=== PATIENT | female | born 1960 | race Caucasian/White ===

== ENCOUNTER 2018-06-20 13:38 | Emergency (ER) | payer OTHER ==
--- NOTE | 2018-06-20 15:46 | ER ---
Nurse's Notes [facility] Name: Gisselle Torres Age: 57 yrs Sex: Female : 1960 Arrival Date: 06/20/2018 Time: 13:39 Bed 28 Private MD: Diagnosis: Cellulitis of left lower limb Presentation: 06/20 13:58 Presenting complaint: Patient states: LLE insect bite started 2 days ago, increased sv swelling. Transition of care: patient was not received from another setting of care. Onset of symptoms was June 18, 2018. Care prior to arrival: None. 13:58 Method Of Arrival: Ambulatory sv 13:58 Acuity: CLARICE 4 sv 15:21 Risk Assessment: Do you want to hurt yourself or someone else? Patient reports no mg2 desire to harm self or others. Initial Sepsis Screen: Does the patient meet any 2 criteria? No. Patient's initial sepsis screen is negative. Does the patient have a suspected source of infection? No. Patient's initial sepsis screen is negative. Triage Assessment: 13:58 General: Appears in no apparent distress. uncomfortable, obese, Behavior is calm, sv cooperative, appropriate for age. Pain: Complains of pain in left leg. Neuro: Level of Consciousness is awake, alert, obeys commands, Oriented to person, place, time, situation, Gait is steady, with cane. Respiratory: Respiratory effort is even, unlabored, Respiratory pattern is regular, symmetrical. Derm: Redness and swelling noted to LLE. 15:22 Bite description: bite sustained to left leg by unknown insect, animal information: mg2 vaccination(s) is unknown. Historical: - Allergies: 14:00 No Known Allergies; sv - PMHx: 14:00 None; sv - PSHx: 14:00 Knee surgery; sv - Immunization history:: Flu vaccine status is unknown. - Social history:: Smoking status: unknown. - Ebola Screening: : No symptoms or risks identified at this time. Screenin:57 Abuse screen: Denies threats or abuse. Denies injuries from another. Nutritional mg2 screening: No deficits noted. Tuberculosis screening: No symptoms or risk factors identified. Fall Risk None identified. Assessment: 15:19 General: Appears in no apparent distress. comfortable, Behavior is calm, cooperative. mg2 Pain: Complains of pain in left leg Pain does not radiate. Pain currently is 2 out of 10 on a pain scale. Quality of pain is described as aching, Pain began gradually, 2-3 days ago. Is intermittent. Neuro: Level of Consciousness is awake, alert, obeys commands, Oriented to person, place, time, situation. Cardiovascular: Capillary refill < 3 seconds Patient's skin is warm and dry. Respiratory: Airway is patent Respiratory effort is even, unlabored, Respiratory pattern is regular, symmetrical. GI: No signs and/or symptoms were reported involving the gastrointestinal system. : No deficits noted. EENT: No deficits noted. Derm: Skin is intact, is healthy with good turgor, Skin is pink, warm \T\ dry. normal, cellulitis noted in the left lower leg. Musculoskeletal: Circulation, motion, and sensation intact. Capillary refill < 3 seconds. Vital Signs: 14:00 BP 139 / 71; Pulse 75; Resp 18; Temp 98.9(O); Pulse Ox 97% ; Weight 108.86 kg; Height 5 sv ft. 1 in. (154.94 cm); 15:18 BP 137 / 77; Pulse 78; Resp 18; Pulse Ox 98% on R/A; Pain 2/10; mg2 14:00 Body Mass Index 45.35 (108.86 kg, 154.94 cm) sv ED Course: 13:39 Patient arrived in ED. tw3 13:59 Triage completed. sv 14:00 Arm band placed on. sv 14:55 Dane Del Toro, RN is Primary Nurse. mg2 15:21 No provider procedures requiring assistance completed. Patient did not have IV access mg2 during this emergency room visit. 15:22 Patient has correct armband on for positive identification. Door closed. mg2 15:24 Kim Shannon FNP-C [facility]. snw 15:24 Jacinto Fajardo MD is Attending Physician. snw Administered Medications: 15:54 Drug: Hibiclens 4 % 1 application Route: Topical; Site: affected area; mg2 15:55 Follow up: Response: No adverse reaction; Medication administered at discharge. mg2 15:54 Drug: Doxycycline 100 mg Route: PO; mg2 15:54 Follow up: Response: No adverse reaction; Medication administered at discharge. mg2 15:54 Drug: UltRAM 25 mg Route: PO; mg2 15:54 Follow up: Response: No adverse reaction; Medication administered at discharge. mg2 Outcome: 15:46 Discharge ordered by MD. bagley 15:55 Discharged to home ambulatory. mg2 15:55 Condition: stable 15:55 Discharge instructions given to patient, Instructed on discharge instructions, follow up and referral plans. medication usage, Demonstrated understanding of instructions, follow-up care, medications, Prescriptions given X 2. 15:56 Patient left the ED. mg2 Signatures: Geneva Hager RN RN sv Kim Shannon, CHRISTIAN SCIENCE READER-C CHRISTIAN SCIENCE READER-Csnw Beatriz Downs tw3 Dane Del Toro, RN RN mg2 Corrections: (The following items were deleted from the chart) 14:01 14:00 Pulse 75bpm; Resp 18bpm; Pulse Ox 97%; Temp 98.9F Oral; 108.86 kg; Height 5 ft. 1 sv in.; BMI: 45.3; sv
--- NOTE | 2018-06-20 15:46 | EDPHYS ---
Physician Documentation [facility] Name: Gisselle Torres Age: 57 yrs Sex: Female : 1960 Arrival Date: 06/20/2018 Time: 13:39 Bed 28 Private MD: ED Physician Jacinto Fajardo HPI: 06/20 16:43 This 57 yrs old Female presents to ER via Ambulatory with complaints of snw Insect Bite. 16:43 Onset: The symptoms/episode began/occurred suddenly, 2 day(s) ago, and became worse and snw became persistent. The patient has not experienced similar symptoms in the past. It is unknown whether or not the patient has recently seen a physician. Td up to date. Historical: - Allergies: 14:00 No Known Allergies; sv - PMHx: 14:00 None; sv - PSHx: 14:00 Knee surgery; sv - Immunization history:: Flu vaccine status is unknown. - Social history:: Smoking status: unknown. - Ebola Screening: : No symptoms or risks identified at this time. ROS: 16:42 Constitutional: Negative for fever, chills, and weight loss, Eyes: Negative for injury, snw pain, redness, and discharge, ENT: Negative for injury, pain, and discharge, Neck: Negative for injury, pain, and swelling, Cardiovascular: Negative for chest pain, palpitations, and edema, Respiratory: Negative for shortness of breath, cough, wheezing, and pleuritic chest pain, Abdomen/GI: Negative for abdominal pain, nausea, vomiting, diarrhea, and constipation, Back: Negative for injury and pain, : Negative for injury, bleeding, discharge, and swelling, MS/Extremity: Negative for injury and deformity, Neuro: Negative for headache, weakness, numbness, tingling, and seizure, Psych: Negative for depression, anxiety, suicide ideation, homicidal ideation, and hallucinations. 16:42 Skin: Positive for insect bite to left anterior distal doe. Exam: 16:41 Constitutional: This is a well developed, well nourished patient who is awake, alert, snw and in no acute distress. Head/Face: Normocephalic, atraumatic. Eyes: Pupils equal round and reactive to light, extra-ocular motions intact. Lids and lashes normal. Conjunctiva and sclera are non-icteric and not injected. Cornea within normal limits. Periorbital areas with no swelling, redness, or edema. ENT: Nares patent. No nasal discharge, no septal abnormalities noted. Tympanic membranes are normal and external auditory canals are clear. Oropharynx with no redness, swelling, or masses, exudates, or evidence of obstruction, uvula midline. Mucous membranes moist. Neck: Trachea midline, no thyromegaly or masses palpated, and no cervical lymphadenopathy. Supple, full range of motion without nuchal rigidity, or vertebral point tenderness. No Meningismus. Chest/axilla: Normal chest wall appearance and motion. Nontender with no deformity. No lesions are appreciated. Cardiovascular: Regular rate and rhythm with a normal S1 and S2. No gallops, murmurs, or rubs. Normal PMI, no JVD. No pulse deficits. Respiratory: Lungs have equal breath sounds bilaterally, clear to auscultation and percussion. No rales, rhonchi or wheezes noted. No increased work of breathing, no retractions or nasal flaring. Abdomen/GI: Soft, non-tender, with normal bowel sounds. No distension or tympany. No guarding or rebound. No evidence of tenderness throughout. Back: No spinal tenderness. No costovertebral tenderness. Full range of motion. MS/ Extremity: Pulses equal, no cyanosis. Neurovascular intact. Full, normal range of motion. Neuro: Awake and alert, GCS 15, oriented to person, place, time, and situation. Cranial nerves II-XII grossly intact. Motor strength 5/5 in all extremities. Sensory grossly intact. Cerebellar exam normal. Normal gait. Psych: Awake, alert, with orientation to person, place and time. Behavior, mood, and affect are within normal limits. 16:41 Skin: Appearance: normal except for affected area, cellulitis, that is moderate, well demarcated, on the left doe, central puncture with scabbing. Vital Signs: 14:00 BP 139 / 71; Pulse 75; Resp 18; Temp 98.9(O); Pulse Ox 97% ; Weight 108.86 kg; Height 5 sv ft. 1 in. (154.94 cm); 15:18 BP 137 / 77; Pulse 78; Resp 18; Pulse Ox 98% on R/A; Pain 2/10; mg2 14:00 Body Mass Index 45.35 (108.86 kg, 154.94 cm) sv MDM: 15:41 Patient medically screened. snw 16:42 Data reviewed: vital signs, nurses notes. Data interpreted: Pulse oximetry: on room air snw is 98 %. Interpretation: normal. Counseling: I had a detailed discussion with the patient and/or guardian regarding: the historical points, exam findings, and any diagnostic results supporting the discharge/admit diagnosis, the need for outpatient follow up, to return to the emergency department if symptoms worsen or persist or if there are any questions or concerns that arise at home. Special discussion: I discussed in detail with the patient the higher chance of wound infection based on his presenting history. Based on the history and exam findings, there is no indication for further emergent testing or inpatient evaluation. I discussed with the patient/guardian the need to see the primary care provider for further evaluation of the symptoms. Administered Medications: 15:54 Drug: Hibiclens 4 % 1 application Route: Topical; Site: affected area; mg2 15:55 Follow up: Response: No adverse reaction; Medication administered at discharge. mg2 15:54 Drug: Doxycycline 100 mg Route: PO; mg2 15:54 Follow up: Response: No adverse reaction; Medication administered at discharge. mg2 15:54 Drug: UltRAM 25 mg Route: PO; mg2 15:54 Follow up: Response: No adverse reaction; Medication administered at discharge. mg2 Disposition: 19:05 Co-signature as Attending Physician, Jacinto Fajardo MD. rn Disposition: 06/20/18 15:46 Discharged to Home. Impression: Cellulitis of left lower limb. - Condition is Stable. - Discharge Instructions: Insect Bite, Cellulitis, Adult, VIS, Tetanus, Diphtheria (Td) - CDC, Heat Therapy. - Prescriptions for Mobic 7.5 mg Oral Tablet - take 1 tablet by ORAL route once daily take with food; 20 tablet. Doxycycline Hyclate 100 mg Oral Tablet - take 1 tablet by ORAL route every 12 hours; 20 tablet. - Work release form, Medication Reconciliation Form, Thank You Letter, Antibiotic Education, Prescription Opioid Use form. - Follow up: Private Physician; When: 2 - 3 days; Reason: Recheck today's complaints, Continuance of care, Re-evaluation by your physician. Follow up: Emergency Department; When: As needed; Reason: Worsening of condition. Signatures: Geneva Hager RN RN sv Kim Shannon, IT INFRASTRUCTURE PROJECT MANAGER-C IT INFRASTRUCTURE PROJECT MANAGER-Csnw Jacinto Fajardo MD MD rn Gardose, Michele, RN RN mg2 Corrections: (The following items were deleted from the chart) 15:56 15:46 06/20/2018 15:46 Discharged to Home. Impression: Cellulitis of left lower limb. mg2 Condition is Stable. Forms are Medication Reconciliation Form, Thank You Letter, Antibiotic Education, Prescription Opioid Use. Follow up: Private Physician; When: 2 - 3 days; Reason: Recheck today's complaints, Continuance of care, Re-evaluation by your physician. Follow up: Emergency Department; When: As needed; Reason: Worsening of condition. snw
[2018-06-20] MEDS ORDERED: TRAMADOL HCL 50 MG TAB ONE (16:00)
[2018-06-20] MEDS ORDERED: DOXYCYCLINE 100 MG CAP PO ONE (16:00)
== END 2018-06-20 15:56 | disposition home or self-care (01) ==
LOC: ER 13:38
DX: L03.116 Cellulitis of left lower limb (principal)
CPT/HCPCS: 99283

== ENCOUNTER 2020-12-14 10:49 | Emergency (ER) | payer OTHER, SELFPAY ==
[2020-12-14] MEDS ORDERED: FAMOTIDINE 20 MG/2 ML VIAL IV ONE (11:23)
--- NOTE | 2020-12-14 13:11 | ER ---
Nurse's Notes [facility] Master Name: Gisselle Torres Age: 60 yrs Sex: Female : 1960 Arrival Date: 12/14/2020 Time: 10:56 Bed 9 Private MD: Diagnosis: Allergic urticaria;Allergic reaction to DW40 Presentation: 12/14 10:57 Chief complaint: EMS states: pt put wd-40 on BLE to relieve arthritis pain, had tc5 possible allergic rxn as she developed redness to the skin all over her body. EMS placed 20g to the left hand, administered benadryl 50mg IV, Solumedrol 125mg IV, zofran 4mg IV, states the redness is improving. Coronavirus screen: Vaccine status: Patient reports receiving the 1st dose of the Covid vaccine. unknown date, states she missed her appointment to get the second pfizer shot. Ebola Screen: Patient negative for fever greater than or equal to 101.5 degrees Fahrenheit, and additional compatible Ebola Virus Disease symptoms Patient denies exposure to infectious person. Patient denies travel to an Ebola-affected area in the 21 days before illness onset. No symptoms or risks identified at this time. Onset: The symptoms/episode began/occurred acutely, just prior to arrival. Risk Assessment: Do you want to hurt yourself or someone else? Patient reports no desire to harm self or others. Onset of symptoms was December 14, 2020. 10:57 Method Of Arrival: EMS: [facility] tc5 10:57 Acuity: CLARICE 3 tc5 11:13 Initial Sepsis Screen: Does the patient meet any 2 criteria? Yes Does the patient have oh a suspected source of infection? No. Patient's initial sepsis screen is negative. Triage Assessment: 11:03 General: Appears distressed, Behavior is cooperative, appropriate for age, anxious. tc5 Pain: Complains of pain in head, neck, chest, abdomen, pelvis, right arm, right hand, left arm, left hand, right leg, right foot, left leg, left foot, back of head, back of neck, back of left arm, back of right arm, posterior chest, buttocks, back of left leg, back of right leg, left heel, right heel and back. Neuro: No deficits noted. Cardiovascular: No deficits noted. Respiratory: No deficits noted. GI: No deficits noted. Derm: redness to all 4 ext. Historical: - Allergies: 11:04 No Known Allergies; tc5 - Home Meds: 11:08 Hydralazine Oral [Active]; furosemide Oral for edema [Active]; diclofenac oral [Active];tc5 - Immunization history:: Adult Immunizations up to date, Client reports receiving the 1st dose of the Covid vaccine, pfitzer, missed appointment for second shot. - Social history:: Smoking status: states she smokes [employer].. - Coronavirus screen:: The patient has NOT traveled to [place] in the past 14 days. Proceed with normal triage process as indicated. - Ebola Screening: : No symptoms or risks identified at this time. Screenin:09 Abuse screen: Denies threats or abuse. Nutritional screening: No deficits noted. oh Tuberculosis screening: No symptoms or risk factors identified. Fall Risk Gait-. Assessment: 11:10 Derm: Rash noted that is itchy, red, on body after applying wd-40 for arthiritis relief oh Reports burning, itching. 11:13 Respiratory: Respiratory effort is even. oh 11:13 Respiratory: Airway is patent. oh Vital Signs: 10:57 BP 104 / 59; Pulse 91; Resp 20; Temp 97.8; Pulse Ox 100% ; Weight 113.4 kg; Height 5 tc5 ft. 1 in. (154.94 cm); Pain 9/10; 12:38 BP 120 / 75; Pulse 81; Resp 19; Pulse Ox 99% on R/A; oh 10:57 Body Mass Index 47.24 (113.40 kg, 154.94 cm) tc5 ED Course: 10:56 Patient arrived in ED. oh 10:58 Stefany Quiroz FNP-C is [facility]. kb 10:58 Jacinto Fajardo MD is Attending Physician. kb 11:03 Triage completed. tc5 11:06 Hunter Estrada, PROSPER is Primary Nurse. oh 11:13 Bed in low position. Call light in reach. oh 13:18 IV discontinued, bleeding controlled, Pressure dressing applied. oh Administered Medications: 11:00 Drug: Pepcid (famotidine) 20 mg Route: IVP; Site: left hand; oh Outcome: 13:09 Discharge ordered by . kb 13:18 Discharged to home oh 13:18 Condition: stable 13:18 Discharge instructions given to patient. 13:18 Patient left the ED. oh Signatures: Stefany Quiroz, LORENZA-C ESTERS AND EMULSIFIERS SUPERVISOR-Hunter Moreira, RN RN oh Gisselle Quarles, RN RN tc5
--- NOTE | 2020-12-14 13:11 | EDPHYS ---
Physician Documentation [facility] Master Name: Gisselle Torres Age: 60 yrs Sex: Female : 1960 Arrival Date: 12/14/2020 Time: 10:56 Bed 9 Private MD: ED Physician Jacinto Fajardo HPI: 12/14 17:03 This 60 yrs old Female presents to ER via EMS with complaints of Allergic kb Reaction. 17:03 The patient presents with rash, redness of skin, shortness of breath. Onset: The kb symptoms/episode began/occurred just prior to arrival. Associated signs and symptoms: Pertinent positives: hives, rash. Possible causes: DW40. At home the patient or guardian has treated the symptoms with nothing. Severity of symptoms: At their worst the symptoms were moderate in the emergency department the symptoms have improved. The patient has not experienced similar symptoms in the past. The patient has not recently seen a physician. Pt reports hives, shortness of breath and throat swelling after rubbing DW40 onto bilateral legs. Pt washed legs off prior to arrival. EMS administered benadryl and solumedrol officer captain. Pt reports her throat doesn't feel swollen anymore and she is no longer short of breath. . Historical: - Allergies: 11:04 No Known Allergies; tc5 - Home Meds: 11:08 Hydralazine Oral [Active]; furosemide Oral for edema [Active]; diclofenac oral [Active];tc5 - Immunization history:: Adult Immunizations up to date, Client reports receiving the 1st dose of the Covid vaccine, pfitzer, missed appointment for second shot. - Social history:: Smoking status: states she smokes marajuana.. - Coronavirus screen:: The patient has NOT traveled to [place] in the past 14 days. Proceed with normal triage process as indicated. - Ebola Screening: : No symptoms or risks identified at this time. ROS: 16:59 Constitutional: Negative for fever, chills, and weight loss. kb 16:59 Skin: Positive for erythema, rash, diffusely. 16:59 All other systems are negative. Exam: 16:59 Constitutional: This is a well developed, well nourished patient who is awake, alert, kb and in no acute distress. Head/Face: Normocephalic, atraumatic. ENT: Moist Mucous membranes Cardiovascular: Regular rate and rhythm with a normal S1 and S2. No gallops, murmurs, or rubs. No pulse deficits. Respiratory: Respirations even and unlabored. No increased work of breathing, no retractions or nasal flaring. MS/ Extremity: Pulses equal, no cyanosis. Neurovascular intact. Full, normal range of motion. Neuro: Awake and alert, GCS 15, oriented to person, place, time, and situation. Moves all extremities. Normal gait. Psych: Awake, alert, with orientation to person, place and time. Behavior, mood, and affect are within normal limits. 16:59 Skin: rash a moderate rash is noted, rash can be described as erythematous, urticarial, consistent with urticaria. Vital Signs: 10:57 BP 104 / 59; Pulse 91; Resp 20; Temp 97.8; Pulse Ox 100% ; Weight 113.4 kg; Height 5 tc5 ft. 1 in. (154.94 cm); Pain 9/10; 12:38 BP 120 / 75; Pulse 81; Resp 19; Pulse Ox 99% on R/A; oh 10:57 Body Mass Index 47.24 (113.40 kg, 154.94 cm) tc5 MDM: 10:58 Patient medically screened. kb 16:58 Data reviewed: vital signs, nurses notes. Data interpreted: Pulse oximetry: on room air kb is 99 %. Interpretation: normal. Counseling: I had a detailed discussion with the patient and/or guardian regarding: the historical points, exam findings, and any diagnostic results supporting the discharge/admit diagnosis, the need for outpatient follow up, a family practitioner, to return to the emergency department if symptoms worsen or persist or if there are any questions or concerns that arise at home. 17:02 Response to treatment: the patient's symptoms have resolved after treatment. kb 17:02 ED course: Pt requests refill of gabapentin as well. States she has an appt with her kb , but it isn't until next week. Administered Medications: 11:00 Drug: Pepcid (famotidine) 20 mg Route: IVP; Site: left hand; oh Disposition: 18:35 Co-signature as Attending Physician, Jacinto Fajardo MD I agree with the assessment and rn plan of care. Attestation: The patient's history, exam findings, diagnostics, and a summary of any interventions or procedures was reviewed in detail with Stefany FLOOD. Disposition Summary: 12/14/20 13:09 Discharge Ordered Location: Home kb Condition: Stable kb Diagnosis - Allergic urticaria kb - Allergic reaction to DW40 kb Followup: kb - With: Emergency Department - When: As needed - Reason: Worsening of condition Followup: kb - With: Private Physician - When: 2 - 3 days - Reason: Recheck today's complaints, Continuance of care, Re-evaluation by your physician Discharge Instructions: - Discharge Summary Sheet kb - Hives, [id number] kb - Allergies, Adult, [id number] kb Forms: - Medication Reconciliation Form kb - Thank You Letter kb - Antibiotic Education kb - Prescription Opioid Use kb Prescriptions: - Neurontin 300 mg Oral Capsule - take 1 capsule by ORAL route At bedtime; 20 capsule; Refills: 0, Product kb Selection Permitted - Pepcid 20 mg Oral Tablet - take 1 tablet by ORAL route every 12 hours for 5 days; 10 tablet; Refills: 0, kb Product Selection Permitted - Prednisone 20 mg Oral Tablet - take 1 tablet by ORAL route once daily for 5 days; 5 tablet; Refills: 0, kb Product Selection Permitted Signatures: Stefany Quiroz FNP-C FNP-Jacinto Sanders MD MD rn Harriott, [place], RN RN ne Gisselle Quarles, RN RN tc5
[2020-12-14 13:26] VITALS: TEMP 97.8
[2020-12-14 13:27] VITALS: BP 120/75; O2SAT 99
== END 2020-12-14 13:18 | disposition home or self-care (01) ==
LOC: ER 10:49
DX: L50.0 Allergic urticaria (principal); Z91.048 Other nonmedicinal substance allergy status
CPT/HCPCS: 96374; 99283